=== PATIENT | female | born 1945 | race Caucasian/White ===

== ENCOUNTER 2017-03-22 09:48 | Emergency (ER) | payer OTHER ==
[~2017-03-22 09:48] MED LIST: ATENOLOL PO; BUSPAR PO; BUSPIRONE HCL10 MG PO; CLARITIN10 M2 PO; DETROL LA PO; DITROPAN5 MG PO; DULERA 200 MCG/13 GM IH; LIDOCAINE VISCOU1 ML EXT; MOBIC15 MG PO; MONTELUKAST SOD10 MG PO; PROAIR HFA8.5 GM IH; RANITIDINE HCL150 M1 PO; SARAFEM20 M1 PO; SKELAXIN PO; ULTRAM PO; ZANTAC PO; ZESTRIL5 MG PO; ZYLOPRIM100 MG PO; ZYRTEC PO
== END 2017-03-22 13:45 | disposition home or self-care (01) ==
LOC: CED 09:48
DX: K56.49 Other impaction of intestine (principal); K59.00 Constipation, unspecified; I10 Essential (primary) hypertension; Z90.710 Acquired absence of both cervix and uterus; Z88.5 Allergy status to narcotic agent; Z79.899 Other long term (current) drug therapy
CPT/HCPCS: 99283

== ENCOUNTER → 2017-05-11 | Outpatient (CLI) | payer OTHER ==
[2017-05-11 12:21] LABS: POC - CREATININE 1.18 mg/dL (0.44-1.03)
== END | disposition home or self-care (01) ==
LOC: CMRI 02-25 17:00
PROVIDERS: Nurse Practitioner Family
DX: G45.9 Transient cerebral ischemic attack, unspecified (principal)
CPT/HCPCS: 82565